=== PATIENT | female | born 1975 | race African-American/Black ===

== ENCOUNTER 2019-09-15 10:48 | Inpatient (IN) | payer SELFPAY ==
[~2019-09-15] VITALS: Ht 170.2 cm; Wt 70.5 kg
--- OUTSIDE RECORDS SUMMARY | 2019-09-15 10:51 | XMS REPORT ---
Author Author [facility] Address Unknown Phone Unavailable Care Team Providers Care Director [facility] Name Role Phone Unavailable Unavailable Problems This patient has no known problems. Allergies, Adverse Reactions, Alerts This patient has no known allergies or adverse reactions. Medications This patient has no known medications. Encounters Start Date/Time End Date/Time Encounter Type Admission Type Attending Clinicians Care Facility Care Department Encounter ID 2018-09-02 00:00:00 2018-09-02 00:00:00 Outpatient [facility] [id number] 2018-08-01 16:17:51 2018-08-01 16:17:51 Outpatient [facility] [id number] Results Test Description Test Time Test Comments Text Results Atomic Results Result Comments HCG Qualitative Urine 2019-05-25 15:42:41 hCG Ur (test code=hCG Ur) Negative If the result is "Negative" in patients suspected to be , recommend retest with a sample obtained 48 to 72 hours later, or by ordering a quantitative assay. If the result is "Borderline" gino ting should be repeated in 48 to 72 hours. Lot # (test code=Lot #) [id number] Expiration Dt (test code=Expiration Dt) Neg Control (test code=Neg Control) Negative Pos Control (test code=Pos Control) Positive Internal QC (test code=Internal QC) Acceptable Urinalysis with Culture, if [id number] 15:09:04* Test Item Value Reference Range Comments UA Color (test code=UA Color) STRAW Yellow UA Appear (test code=UA Appear) CLEAR Clear UA pH (test code=UA pH) 8 UA Spec Grav (test code=UA Spec Grav) 1.013 1.001-1.035 UA Glucose (test code=UA Glucose) NEG Negative UA Bili (test code=UA Bili) NEG Negative UA Ketones (test code=UA Ketones) NEG Negative UA Blood (test code=UA Blood) NEG Negative UA Protein (test code=UA Protein) NEG Negative UA Urobilinogen (test code=UA Urobilinogen) 0.2 mg/dL UA Nitrite (test code=UA Nitrite) NEG Negative UA Leuk Est (test code=UA Leuk Est) NEG Negative UA Micro Ind? (test code=UA Micro Ind?) Not Indicated Not Indicated Result created by rule [email or web address]_IND Comprehensive Metabolic [id number] 13:51:46* Test Item Value Reference Range Comments Sodium Level (test code=Sodium Level) 137.0 mmol/L 135.0-145.0 Potassium Level (test code=Potassium Level) 3.4 mmol/L 3.5-5.1 Chloride Level (test code=Chloride Level) 101 mmol/L 98-105 CO2 (test code=CO2) 25 mmol/L 22-29 Anion Gap (test code=Anion Gap) 11 mmol/L 7-16 BUN (test code=BUN) 8.90 mg/dL 6.00-20.00 Creatinine Level (test code=Creatinine Level) 0.80 mg/dL 0.50-0.90 BUN/Creat Ratio (test code=BUN/Creat Ratio) 11 Glucose Level (test code=Glucose Level) 133 mg/dL 70-115 Calcium Level (test code=Calcium Level) 9.6 mg/dL 8.3-10.5 Alk Phos (test code=Alk Phos) 68 U/L 35-104 Bilirubin Total (test code=Bilirubin Total) 0.2 mg/dL 0.1-0.9 Albumin Level (test code=Albumin Level) 4.4 g/dL 3.5-5.2 Protein Total (test code=Protein Total) 7.4 g/dL 6.4-8.3 ALT (test code=ALT) 8 U/L 1-33 AST (test code=AST) 17 U/L 1-32 Globulin (test code=Globulin) 3.0 g/dL 2.9-3.1 A/G Ratio (test code=A/G Ratio) 1.5 ratio Comprehensive Metabolic [id number] 13:51:46* Test Item Value Reference Range Comments Sodium Level (test code=Sodium Level) 137.0 mmol/L 135.0-145.0 Potassium Level (test code=Potassium Level) 3.4 mmol/L 3.5-5.1 Chloride Level (test code=Chloride Level) 101 mmol/L 98-105 CO2 (test code=CO2) 25 mmol/L 22-29 Anion Gap (test code=Anion Gap) 11 mmol/L 7-16 BUN (test code=BUN) 8.90 mg/dL 6.00-20.00 Creatinine Level (test code=Creatinine Level) 0.80 mg/dL 0.50-0.90 BUN/Creat Ratio (test code=BUN/Creat Ratio) 11 Glucose Level (test code=Glucose Level) 133 mg/dL 70-115 Calcium Level (test code=Calcium Level) 9.6 mg/dL 8.3-10.5 Alk Phos (test code=Alk Phos) 68 U/L 35-104 Bilirubin Total (test code=Bilirubin Total) 0.2 mg/dL 0.1-0.9 Albumin Level (test code=Albumin Level) 4.4 g/dL 3.5-5.2 Protein Total (test code=Protein Total) 7.4 g/dL 6.4-8.3 ALT (test code=ALT) 8 U/L 1-33 AST (test code=AST) 17 U/L 1-32 Globulin (test code=Globulin) 3.0 g/dL 2.9-3.1 A/G Ratio (test code=A/G Ratio) 1.5 ratio eGFR AA (test code=eGFR AA) >60 mL/min/1.73 m2 eGFR (estimated Glomerular Filtration Rate) is an estimated value, calculated from the patient's serum creatinine using the MDRD equation. It is NOT the patient's actual GFR. The eGFR provides a more clinically useful measure of kidney disease than serum creatinine alone.This calculation takes sex and race into account, if the information is provided. If the race is not provided, and the patient is -[place], multiply by 1.212. If sex is not provided, and the patient is female, multiply by 0.742. Results for patients <18 years of age have not been validated by the MDRD study and should be interpreted with caution. eGFR Result Interpretation:eGFR > or=60 is in the Normal RangeeGFR < 60 may mean kidney diseaseeGFR < 15 may mean kidney failure Ranges recommended by the National Kidney Foundation, http://nkdep.nih.gov Comprehensive Metabolic [id number] 13:51:46* Test Item Value Reference Range Comments Sodium Level (test code=Sodium Level) 137.0 mmol/L 135.0-145.0 Potassium Level (test code=Potassium Level) 3.4 mmol/L 3.5-5.1 Chloride Level (test code=Chloride Level) 101 mmol/L 98-105 CO2 (test code=CO2) 25 mmol/L 22-29 Anion Gap (test code=Anion Gap) 11 mmol/L 7-16 BUN (test code=BUN) 8.90 mg/dL 6.00-20.00 Creatinine Level (test code=Creatinine Level) 0.80 mg/dL 0.50-0.90 BUN/Creat Ratio (test code=BUN/Creat Ratio) 11 Glucose Level (test code=Glucose Level) 133 mg/dL 70-115 Calcium Level (test code=Calcium Level) 9.6 mg/dL 8.3-10.5 Alk Phos (test code=Alk Phos) 68 U/L 35-104 Bilirubin Total (test code=Bilirubin Total) 0.2 mg/dL 0.1-0.9 Albumin Level (test code=Albumin Level) 4.4 g/dL 3.5-5.2 Protein Total (test code=Protein Total) 7.4 g/dL 6.4-8.3 ALT (test code=ALT) 8 U/L 1-33 AST (test code=AST) 17 U/L 1-32 Globulin (test code=Globulin) 3.0 g/dL 2.9-3.1 A/G Ratio (test code=A/G Ratio) 1.5 ratio eGFR AA (test code=eGFR AA) >60 mL/min/1.73 m2 eGFR (estimated Glomerular Filtration Rate) is an estimated value, calculated from the patient's serum creatinine using the MDRD equation. It is NOT the patient's actual GFR. The eGFR provides a more clinically useful measure of kidney disease than serum creatinine alone.This calculation takes sex and race into account, if the information is provided. If the race is not provided, and the patient is -[place], multiply by 1.212. If sex is not provided, and the patient is female, multiply by 0.742. Results for patients <18 years of age have not been validated by the MDRD study and should be interpreted with caution. eGFR Result Interpretation:eGFR > or=60 is in the Normal RangeeGFR < 60 may mean kidney diseaseeGFR < 15 may mean kidney failure Ranges recommended by the National Kidney Foundation, http://nkdep.nih.gov eGFR Non-AA (test code=eGFR Non-AA) >60.00 mL/min/1.73 m2 eGFR (estimated Glomerular Filtration Rate) is an estimated value, calculated from the patient's serum creatinine using the MDRD equation. It is NOT the patient's actual GFR. The eGFR provides a more clinically useful measure of kidney disease than serum creatinine alone.This calculation takes sex and race into account, if the information is provided. If the race is not provided, and the patient is -[place], multiply by 1.212. If sex is not provided, and the patient is female, multiply by 0.742. Results for patients <18 years of age have not been validated by the MDRD study and should be interpreted with caution. eGFR Result Interpretation:eGFR > or=60 is in the Normal RangeeGFR < 60 may mean kidney diseaseeGFR < 15 may mean kidney failure Ranges recommended by the National Kidney Foundation, http://nkdep.nih.gov IG [id number] 12:57:01* Test Item Value Reference Range Comments IG (test code=IG) 0.2 % 0.0-5.0 IG Abs (test code=IG Abs) 0 x10 Complete Blood Count with [id number] 12:57:00* Test Item Value Reference Range Comments WBC (test code=WBC) 6.2 x10 4.4-10.5 RBC (test code=RBC) 5.23 x10 3.75-5.20 Hgb (test code=Hgb) 13.9 g/dL 12.2-14.8 Hct (test code=Hct) 42.9 % 36.5-44.4 MCV (test code=MCV) 82.00 fL 80.00-100.00 MCHC (test code=MCHC) 32.40 g/dL 32.00-37.50 RDW CV (test code=RDW CV) 14.6 % 11.5-14.5 MCH (test code=MCH) 26.6 pg 27.0-32.5 Platelets (test code=Platelets) 298.0 x10 140.0-440.0 MPV (test code=MPV) 10.9 fL Slide Review (test code=Slide Review) Auto Auto Result created by [email or web address] nRBC (test code=nRBC) 0 NRBC Abs (test code=NRBC Abs) 0.00 x10 IPF (test code=IPF) 0 % Automated [id number] 12:57:00* Test Item Value Reference Range Comments Neutro Auto (test code=Neutro Auto) 56.1 % 36.0-70.0 Lymph Auto (test code=Lymph Auto) 29.6 % 12.0-44.0 Willacy Auto (test code=Willacy Auto) 11.1 % 0.0-11.0 Eos, Auto (test code=Eos, Auto) 2.7 % 0.0-7.0 Basophil Auto (test code=Basophil Auto) 0.3 % 0.0-2.0 Neutro Absolute (test code=Neutro Absolute) 3.5 x10 1.6-7.4 Lymph Absolute (test code=Lymph Absolute) 1.85 x10 .50-4.60 Willacy Absolute (test code=Willacy Absolute) .69 x10 .00-1.20 Eos Absolute (test code=Eos Absolute) 0.17 x10 0.00-0.74 Baso Absolute (test code=Baso Absolute) 0.02 x10 0.00-0.21 MRI KNEE JNT LT WO CONTRASTCLINICAL INDICATION: S83.92XA Sprain of unspecified site of left knee, initial encounterMODALITY: ACR Accredited BrightView Systemse II 1.5 La MRITECHNIQUE: Multiplanar multisequence MRI of the left knee was performed.IMPRESSION:1. Bucket-handle tear left medial meniscus.2. 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 Small joint effusion.FINDINGS:COMPARISON: noneMENISCI: Bucket-handle tear medial meniscus. Lateral meniscus intact.CRUCIATE LIGAMENTS: Anterior and posterior cruciate ligaments are intact.COLLATERAL LIGAMENTS: Medial and lateral collateral ligaments are intact.OSSEOUS STRUCTURES AND CARTILAGINOUS SURFACES: 5 mm focal area of grade 3/four chondromalacia along the posterior weightbearing portion of the lateral tibial plateau with underlying cystic change. Articular cartilage medial knee joint normal. No fractures. No marrow replacement process.PATELLOFEMORAL JOINT: Alignment normal. Small joint effusion. Trace Acosta s cyst.MISCELLANEOUS FINDINGS: Extensor mechanism intact.
[2019-09-15] MEDS ORDERED: SODIUM CHLORIDE 0.9% 1000ML 1,000 ML IV STA (10:54)
[2019-09-15] MEDS ORDERED: DIATRIZOATE MEGL/DIATRIZOA SOD 30 ML BTL PO ONE (11:31)
[2019-09-15] MEDS ORDERED: ACETAMINOPHEN 325 MG TAB PO ONE (11:55)
[2019-09-15 12:06] LABS: BASOPHILS % 0.2 % (0.0-1.0); EOSINOPHILS # (AUTO) 0.1 (0.0-0.4); HEMOGLOBIN 12.7 g/dL (12.0-16.0); LYMPHOCYTES # (AUTO) 0.4 (1.0-3.2); LYMPHOCYTES % 2.6 % (18.0-39.1); MEAN CORPUSCULAR HGB CONC 32.6 g/dL (31-35); MONOCYTES # (AUTO) 0.5 (0.2-0.8); MONOCYTES % 3.5 % (4.4-11.3); NEUTROPHILS # (AUTO) 12.6 (2.1-6.9); NEUTROPHILS % 92.2 % (38.7-80.0); PLATELET COUNT 290 x10e3/uL (140-360)
[2019-09-15 12:29] LABS: ALANINE AMINOTRANSFERASE 17 IU/L (0-55); ALBUMIN 3.1 g/dL (3.5-5.0); ALBUMIN/GLOBULIN RATIO 0.8 (0.8-2.0); ALKALINE PHOSPHATASE 90 IU/L (40-150); ANION GAP 12.4 mmol/L (8-16); BLOOD UREA NITROGEN 7 mg/dL (7-26); BUN/CREATININE RATIO 9 (6-25); CALCIUM 8.9 mg/dL (8.4-10.2); CARBON DIOXIDE 26 mmol/L (22-29); CHLORIDE 103 mmol/L (98-107); CREATININE, SERUM 0.79 mg/dL (0.57-1.11); EST GLOMERULAR FILTRATION RATE > 60 ML/MIN (60-); GLUCOSE 114 mg/dL (74-118); POTASSIUM 3.4 mmol/L (3.5-5.1); SODIUM 138 mmol/L (136-145)
[2019-09-15 12:33] LABS: CLARITY,URINE CLEAR (CLEAR); COLOR,URINE YELLOW (YELLOW); LEUKOCYTE ESTERASE ,URINE TRACE (NEGATIVE)
[2019-09-15 12:34] LABS: BILIRUBIN,URINE NEGATIVE (NEGATIVE); KETONES,URINE 2+ (NEGATIVE); NITRITE,URINE NEGATIVE (NEGATIVE); PROTEIN,URINE DIPSTICK NEGATIVE (NEGATIVE); URINE UROBILINOGEN 1 mg/dL (0.2 - 1)
[2019-09-15 12:35] LABS: BACTERIA,URINE RARE /HPF; EPITHELIAL CELLS,URINE FEW /LPF; MUCUS,URINE FEW (RARE); PREGNANCY TEST, URINE NEGATIVE (NEGATIVE)
[2019-09-15 13:13] LABS: BAND NEUTROPHILS % (MANUAL) 4 %; LYMPHOCYTES % (MANUAL) 4 % (19-48); MONOCYTES % (MANUAL) 6 % (3.4-9.0); NEUTROPHILS % (MANUAL) 86 % (40-74)
[2019-09-15 13:16] LABS: RBC MORPHOLOGY COMMENT NORMAL
[2019-09-15 13:17] LABS: PLATELET ESTIMATE ADEQUATE; PLATELET MORPHOLOGY COMMENT NORMAL
[2019-09-15] MEDS ORDERED: PIPER-TAZ 3.375 GM 50 ML IV ONE (13:45)
[2019-09-15] MEDS ORDERED: SODIUM CHLORIDE 0.9% 1000ML 1,000 ML IV ONE (13:45)
[2019-09-15] MEDS ORDERED: IOPAMIDOL 370 MG/ML 200 ML INFUS..BTL INJ ONE (14:54)
--- NOTE | 2019-09-15 14:57 | Diagnostic Imaging Report ---
CT of the abdomen and pelvis, with contrast. History: Abdominal pain. Comparison: None available. Technique: Multidetector CT scanning of the abdomen and pelvis was performed from the level of the lung bases to the inferior pubic rami after intravenous administration of contrast. Coronal and sagittal multiplanar reformations were obtained. RADIATION DOSE: Total DLP: 223.69 mGy*cm Dose modulation, iterative reconstruction, and/or weight based adjustment of the mA/kV was utilized to reduce the radiation dose to as low as reasonably achievable. FINDINGS: Lung bases are unremarkable. Imaged portion of the heart demonstrates no significant abnormalities. The liver is normal in size and attenuation. There is a 1.3 cm hypodensity identified within the left hepatic lobe likely representing a cyst. Additional scattered subcentimeter hepatic hypodensities are identified which are too small to definitively characterize. No suspicious hepatic lesion is identified. The stomach, spleen, pancreas, and bilateral adrenal glands are unremarkable. The kidneys are normal in size and location and enhance symmetrically. There is no evidence for hydronephrosis. No ureteral dilatation or stone is appreciated. The urinary bladder demonstrates no significant abnormalities. The uterus is grossly unremarkable. There is fluid-filled, dilated tubular structure identified within the left adnexa with abnormal wall thickening and enhancement. The right adnexa is unremarkable. There is a small volume of free pelvic fluid present. The abdominal ureters normal course and caliber. The IVC is unremarkable. Please note evaluation the bowel is limited without the use of enteric contrast material. The visualized loops of small and large bowel demonstrate no evidence of obstruction or inflammation. There is no intraperitoneal free air. No abnormally enlarged lymph node identified within the abdomen or pelvis. The osseous structures demonstrate no evidence for acute fracture or destructive process. The extraperitoneal soft tissues are unremarkable. IMPRESSION: Dilated, fluid-filled tubular structure identified within the left adnexa which may represent hydrosalpinx or pyosalpinx in the appropriate clinical setting. Small volume of free pelvic fluid noted, likely reactive. Signed by: Dr. Heriberto Watson MD on 09/15/2019 2:54 PM
[2019-09-15] MEDS: CLINDAMYCIN PHOS 900MG/ 50ML 50 ML IV SCH (16:23)
[2019-09-15] MEDS ORDERED: MORPHINE SULFATE 2 MG/ML SYR 1ML IV PRN (16:30)
[2019-09-15] MEDS ORDERED: MORPHINE SULFATE INJ 4 MG/ML INJ 1ML IV PRN (16:45)
[2019-09-15] MEDS ORDERED: POTASSIUM CHLORIDE 20MEQ/100ML 100 ML IV ONE (18:00)
--- NOTE | 2019-09-15 18:13 | Diagnostic Imaging Report ---
Transvaginal and transabdominal ultrasound Indication: Abdominal pain ^? TOA ^[id number] ^[id number] Technique: Transabdominal ultrasound performed for global evaluation of the uterus. Transvaginal ultrasound performed for detailed evaluation of the endometrium and ovaries. Selected images provided for review. Comparison: CT abdomen/pelvis 1339 hours Findings: LMP: 08/08/2019 Transabdominally the uterus measures approximately 3.0 x 5.5 x 6.9 cm. The bladder is normal . Transvaginally, the uterus is retroflexed in position. Myometrial echotexture is normal. No exophytic mass. No definite fibroid. The endometrial stripe measures 0.3 cm, is linear and echogenic and is normal. The cervix is normal. Moderate amount of pelvic free fluid containing low level internal echoes. Neither ovary is visualized due to bowel gas. Adnexa: A thick-walled tubular structure in the left adnexa may represent a fallopian tube. There is also a soft tissue mass in the left adnexa with several internal cystic spaces measuring up to 12 mm. This measures approximately 2.9 x 5.6 cm. IMPRESSION: 1. Thick walled tubular structure in the left adnexa may represent a dilated fallopian tube. A soft tissue mass in the left adnexa containing multiple cystic spaces may or may not correspond to the ovary. Pelvic inflammatory disease cannot be excluded in the appropriate clinical setting. 2. Moderate pelvic ascites containing internal debris. 3. Retroflexed uterus. Normal endometrial stripe. 4. Nonvisualization of the right ovary. Signed by: Dr. Patricia Cheng MD on 09/15/2019 6:10 PM
[2019-09-15] MEDS: GENTAMICIN 120MG/NS 100ML 100 ML IV SCH (18:30)
[2019-09-15] MEDS: SODIUM CHLORIDE 0.9% 1000ML 1,000 ML IV SCH ×2 (18:56→22:55)
[2019-09-15] MEDS: ONDANSETRON HCL INJ 2MG/ML 2ML 2 MG/ML VIAL IV PRN (19:01)
[2019-09-15] MEDS: FAMOTIDINE 20 MG/2 ML VIAL IV SCH (19:07)
[2019-09-15 20:00] VITALS: BP 124/74
[2019-09-15 23:36] VITALS: BP 124/74
[2019-09-16] VITALS (9 sets, daily range): BP systolic 104–148; BP diastolic 52–83
[2019-09-16] MEDS: ACETAMINOPHEN 325 MG TAB PO PRN ×3 (01:14→23:00)
[2019-09-16] MEDS: CLINDAMYCIN PHOS 900MG/ 50ML 50 ML IV SCH ×3 (01:14→19:28)
[2019-09-16] MEDS: GENTAMICIN 120MG/NS 100ML 100 ML IV SCH ×3 (01:14→18:07)
--- NOTE | 2019-09-16 03:24 | Consultation ---
DATE OF CONSULTATION: 09/15/2019 Gynecology Consultation REASON FOR CONSULTATION: Pelvic mass and fever. CHIEF COMPLAINT: Abdominal pain. HISTORY OF PRESENT ILLNESS: Lolita Ac is a 44-year-old 2, para 0-0-2-0 with last menstrual period on August 08, 2019, who presented to the emergency department with history of abdominal pain since last September 06. The patient reports that she believes she had a bladder infection as it started as a suprapubic pain with accompanying urgency. She was seen by her primary care provider, who gave her amoxicillin. No urine culture was done per patient. She reports that 2 to 3 days ago, she began to have increase in the pain, the pain began to radiate into her left lower quadrant and to the umbilicus. Today, she presented to the emergency department via ambulance as her pain had become severe 10/10 diffusely in her pelvic region left worse than right. She describes the pain as being sharp in nature. She denies any nausea, vomiting, diarrhea, or constipation. She does report that yesterday she noticed some spotting, but believed that this was the beginning of her period, which is due any time now. She also noted that she had vaginal discharge starting yesterday, which was green. Of note, she does report a history of dysmenorrhea, never that severe. She also notes a history of pelvic inflammatory disease, which occurred 6 years ago, which was treated with antibiotics inpatient. GYNECOLOGIC HISTORY: Otherwise negative. OBSTETRICAL HISTORY: Two pregnancies, both were spontaneous abortions. No D and C required for either. PAST MEDICAL HISTORY: The patient denies. PAST SURGICAL HISTORY: Left knee meniscus repair. MEDICATIONS: None. ALLERGIES: NONE. FAMILY HISTORY: No pertinent family history. SOCIAL HISTORY: The patient reports one current sexual partner. She is not currently using any form of contraception and does not use condom. She uses alcohol occasionally and no tobacco or drug use. REVIEW OF SYSTEMS: A 10-point review of systems is negative except as listed in the HPI. PHYSICAL EXAMINATION: VITAL SIGNS: Patient presented to the emergency room with a temperature of 101.8 degrees Fahrenheit and a pulse of 119. Remainder of vital signs stable. CONSTITUTIONAL APPEARANCE: The patient is in no acute distress. She is alert and oriented. HEAD AND FACE: Normocephalic, atraumatic. CHEST: Respiratory effort, breathing nonlabored. CARDIOVASCULAR: Regular rhythm and rate. BREASTS: Deferred. GASTROINTESTINAL: Abdominal examination reveals a diffusely tender abdomen, somewhat more tender to palpation in the left lower quadrant. Normal bowel sounds. Normal tone without rigidity or guarding. No palpable mass is present. No hernias noted. GENITOURINARY: External genitalia was normal in appearance for age with no obvious discharge present. No inflammatory lesions present. Sterile speculum exam of the vagina revealed normal vaginal vault with moderate amount of white discharge present. No inflammatory lesions. No masses. On bimanual exam, bladder was nontender to palpation. Her cervix had no cervical motion tenderness. The appearance was healthy. No bleeding present. No obvious discharge. Uterus diffusely tender to palpation. No masses present. Contour smooth to palpation, position was mid-plane, size normal, mobility normal. Adnexa with diffuse bilateral adnexal tenderness present. No adnexal masses were palpable possibly secondary to voluntary guarding of the patient's perineum, perineum was within normal limits. No evidence of trauma, rashes, or skin lesions. Inguinal lymph nodes. No lymphadenopathy present. SKIN: General inspection, no rashes or lesions present. NEUROLOGIC: Grossly oriented to person, place, and time. Mood and affect normal and appropriate. PERTINENT LAB FINDINGS: Included a white blood cell count of 13.69, and a pelvic ultrasound, which noted a dilated tubular structure in the left adnexa measuring 2.9 x 5.6 cm. There is also a soft tissue mass in the left adnexa containing multiple cystic spaces, which may or may not correspond to the ovary. Please see full report for further information. ASSESSMENT: This is a 44-year-old 2, para 0-0-2-0 with possible tubo-ovarian abscess and likely pelvic inflammatory disease. PLAN: Admit to inpatient. Continue IV antibiotic started by emergency room physician, IV clindamycin, and gentamicin. We will make the patient n.p.o. after midnight and consult Interventional Radiology for possible drainage of pelvic abscess. Mari Driscoll MD MEF/MODL /[id number]
[2019-09-16 06:17] LABS: BASOPHILS % 0.2 % (0.0-1.0); EOSINOPHILS % 0.1 % (0.0-6.0); HEMATOCRIT 31.9 % (34.2-44.1); HEMOGLOBIN 10.3 g/dL (12.0-16.0); LYMPHOCYTES # (AUTO) 0.7 (1.0-3.2); MEAN CORPUSCULAR HEMOGLOBIN 26.8 pg (28-32); MEAN CORPUSCULAR HGB CONC 32.3 g/dL (31-35); MEAN CORPUSCULAR VOLUME 82.9 fL (81-99); MONOCYTES # (AUTO) 0.7 (0.2-0.8); MONOCYTES % 4.2 % (4.4-11.3); NEUTROPHILS # (AUTO) 15.7 (2.1-6.9); NEUTROPHILS % 90.7 % (38.7-80.0); PLATELET COUNT 244 x10e3/uL (140-360); RED BLOOD COUNT 3.85 x10e6/uL (3.6-5.1); RED CELL DISTRIBUTION WIDTH 14.4 % (11.7-14.4)
[2019-09-16 06:27] LABS: INR 1.4; PROTHROMBIN TIME 18.1 seconds (11.9-14.5)
[2019-09-16 06:28] LABS: PARTIAL THROMBOPLASTIN TIME 45.1 seconds (23.8-35.5)
[2019-09-16 06:37] LABS: ALANINE AMINOTRANSFERASE 10 IU/L (0-55); ALBUMIN 2.3 g/dL (3.5-5.0); ALBUMIN/GLOBULIN RATIO 0.7 (0.8-2.0); ALKALINE PHOSPHATASE 77 IU/L (40-150); ANION GAP 6.7 mmol/L (8-16); BLOOD UREA NITROGEN 6 mg/dL (7-26); BUN/CREATININE RATIO 8 (6-25); CALCIUM 8.3 mg/dL (8.4-10.2); CARBON DIOXIDE 25 mmol/L (22-29); CHLORIDE 109 mmol/L (98-107); CREATININE, SERUM 0.75 mg/dL (0.57-1.11); EST GLOMERULAR FILTRATION RATE > 60 ML/MIN (60-); GLUCOSE 87 mg/dL (74-118); POTASSIUM 3.7 mmol/L (3.5-5.1); SODIUM 137 mmol/L (136-145)
--- NOTE | 2019-09-16 09:05 | NUR ---
PATIENT IS AWAKE, ALERT, AND IN STABLE CONDITION WITH NO S/S RESPIRATORY DISTRESS. NO PAIN VOICED. IV FLUIDS INFUSING. PATIENT IS NPO FOR PROCEDURE TODAY. PATIENT WILL PROVIDE MED LIST WHEN AVAILABLE TO STAFF MEMBERS. CALL LIGHT IS WITHIN REACH, PATIENT INSTRUCTED TO CALL FOR ASSISTANCE NEEDED.
[2019-09-16] MEDS: FAMOTIDINE 20 MG/2 ML VIAL IV SCH ×2 (09:07→21:00)
--- NOTE | 2019-09-16 09:45 | NUR ---
DR. VASQUES INFORMED OF PATIENT'S SIRS ALERT SCREEN-NO NEW ORDERS GIVEN. PATIENT ON IV FLUIDS AND IS IN STABLE CONDITION WITH NO S/S RESPIRATORY DISTRESS; NO PAIN VOICED. CALL LIGHT IS WITHIN REACH, PATIENT INSTRUCTED TO CALL FOR ASSISTANCE NEEDED.
[2019-09-16] MEDS ORDERED: MAGNESIUM SULFATE 2GM/50ML 50 ML IV ONE (13:00)
[2019-09-16] MEDS: LACTATED RINGER'S 1,000 ML IV SCH (13:13)
--- NOTE | 2019-09-16 14:05 | NUR ---
IV MAGNESIUM WAS ADMINISTERED TO PATIENT BUT THEN PATIENT ASKED FOR IT TO BE TURNED OFF BECAUSE SHE STATED "I DO NOT LIKE THE WAY IT IS MAKING ME FEEL". DR. VASQUES INFORMED PATIENT IS REFUSING IV MAGNESIUM- ORDER TO DC IT.
--- NOTE | 2019-09-16 15:50 | NUR ---
PATIENT IS REFUSING TO BE CONNECTED TO IV FLUIDS OR HER IV ANTIBIOTICS AT THIS TIME. SHE WANTS TO WAIT TO BE CONNECTED TO THE IV ANTIBIOTIC AFTER SHE EATS.
--- NOTE | 2019-09-16 19:37 | NUR ---
PATIENT IN STABLE CONDITION WITH NO S/S RESPIRATORY DISTRESS. NO PAIN VOICED. IV ANTIBIOTIC INFUSING. CALL LIGHT IS WITHIN REACH, PATIENT INSTRUCTED TO CALL FOR ASSISTANCE NEEDED. BEDSIDE SHIFT REPORT GIVEN TO ONCOMING NURSE.
--- NOTE | 2019-09-16 19:58 | NUR ---
RECEIVED PT IN BED AOX3 DENIES PAIN AT THIS TIME LEFT AC 22G LR IS RUNNING AT 100CC/HR .CALL LIGHT WITH IN REACH .CONTINUE TO MONITOR
[2019-09-16] MEDS: ONDANSETRON HCL INJ 2MG/ML 2ML 2 MG/ML VIAL IV PRN (23:00)
[2019-09-17] VITALS (9 sets, daily range): BP systolic 103–140; BP diastolic 58–79
[2019-09-17] MEDS: GENTAMICIN 120MG/NS 100ML 100 ML IV SCH ×3 (01:00→17:56)
[2019-09-17 05:55] LABS: BASOPHILS # (AUTO) 0.1 (0.0-0.1); BASOPHILS % 0.2 % (0.0-1.0); EOSINOPHILS % 0.1 % (0.0-6.0); HEMATOCRIT 30.9 % (34.2-44.1); HEMOGLOBIN 10.1 g/dL (12.0-16.0); LYMPHOCYTES # (AUTO) 0.6 (1.0-3.2); LYMPHOCYTES % 2.5 % (18.0-39.1); MEAN CORPUSCULAR HEMOGLOBIN 26.7 pg (28-32); MEAN CORPUSCULAR HGB CONC 32.7 g/dL (31-35); MEAN CORPUSCULAR VOLUME 81.7 fL (81-99); MONOCYTES # (AUTO) 1.2 (0.2-0.8); MONOCYTES % 4.7 % (4.4-11.3); NEUTROPHILS # (AUTO) 22.6 (2.1-6.9); NEUTROPHILS % 90.9 % (38.7-80.0); PLATELET COUNT 280 x10e3/uL (140-360); RED BLOOD COUNT 3.78 x10e6/uL (3.6-5.1); RED CELL DISTRIBUTION WIDTH 14.6 % (11.7-14.4)
[2019-09-17] MEDS: LACTATED RINGER'S 1,000 ML IV SCH ×3 (06:07→20:55)
--- NOTE | 2019-09-17 06:30 | NUR ---
TEM 100.3 AND GIVEN TYLENOL 650 MG AND TEM REDUCED 98.7 .CALL LIGHT WITH IN REACH .CONTINUE TO MONITOR
--- NOTE | 2019-09-17 07:15 | NUR ---
PATIENT IN STABLE CONDITION WITH NO S/S RESPIRATORY DISTRESS. PATIENT C/O SLIGHT DISCOMFORT TO LOWER ABD. IV FLUIDS INFUSING. BOYFRIEND PRESENT IN ROOM. CALL LIGHT IS WITHIN REACH, PATIENT INSTRUCTED TO CALL FOR ASSISTANCE NEEDED.
--- NOTE | 2019-09-17 07:17 | NUR ---
BEDSIDE REPORT GIVEN TO THE ONCOMING NURSE
[2019-09-17] MEDS: FAMOTIDINE 20 MG/2 ML VIAL IV SCH (07:51)
[2019-09-17] MEDS: CLINDAMYCIN PHOS 900MG/ 50ML 50 ML IV SCH ×3 (07:51→15:12)
[2019-09-17 08:19] LABS: LYMPHOCYTES % (MANUAL) 1 % (19-48); MONOCYTES % (MANUAL) 4 % (3.4-9.0); NEUTROPHILS % (MANUAL) 95 % (40-74)
[2019-09-17 08:20] LABS: PLATELET ESTIMATE ADEQUATE; PLATELET MORPHOLOGY COMMENT NORMAL; RBC MORPHOLOGY COMMENT NORMAL
--- NOTE | 2019-09-17 09:16 | NUR ---
DR. VASQUES INFORMED OF SIRS ALERT- PATIENT HAD A FEVER YESTERDAY EVENING. NO NEW ORDERS RECEIVED.
--- NOTE | 2019-09-17 10:55 | Diagnostic Imaging Report ---
PROCEDURE: Fluid collection aspiration Procedural Personnel Attending physician(s): Nuha Rivera MD Fellow physician(s): None Resident physician(s): None Advanced practice provider(s): None Pre-procedure diagnosis: Tuboovarian abscess Post-procedure diagnosis: Same Indication: Fever, leukocytosis, pain associated with fluid collection Additional clinical history: None Complications: No immediate complications. IMPRESSION: Percutaneous aspiration of left pyosalpinx/tuboovarian abscess, yielding 50 mL of purulent fluid. No drainage catheter was left in place. Plan: Fluid sent for gram stain and fluid culture/sensitivity. PROCEDURE SUMMARY: - Aspiration of left tuboovarian abscess under CT guidance - Additional procedure(s): None PROCEDURE DETAILS: Pre-procedure Consent: Informed consent for the procedure including risks, benefits and alternatives was obtained and time-out was performed prior to the procedure. Preparation: The site was prepared and draped using maximal sterile barrier technique including cutaneous antisepsis. Anesthesia/sedation Level of anesthesia/sedation: No sedation Fluid collection aspiration The patient was positioned supine. Initial imaging was performed. Local anesthesia was administered. The fluid collection was accessed using an access needle. Position within the fluid collection was confirmed, and fluid aspiration was performed. All instruments were then removed. - Initial imaging findings: Left pyosalpinx/tuboovarian abscess - Aspiration needle/catheter: 18 gauge Chiba - Post-aspiration imaging findings: No complications Contrast Contrast agent: Isovue 370 Contrast volume (mL): [address] dose length product (mGy-cm): 1377 Additional Details Additional description of procedure: None Equipment details: None Specimens removed: Aspirated fluid was sent for analysis. Estimated blood loss (mL): Less than 10 Standardized report: [email or web address] Attestation Signer name: Nuha Rivera MD I attest that I was present for the entire procedure. I reviewed the stored images and agree with the report as written. Signed by: Nuha Rivera MD on 09/17/2019 10:52 AM
--- NOTE | 2019-09-17 11:58 | NUR ---
GAVE PACKET OF INFORMATION WITH COMM[employer]ITY [employer] FOR ASSISTANCE WITH LOW TO NO INCOME TO PATIENT. RESOURCES THAT PATIENT MAY BE ABLE TO FOLLOW UP UPON DISCHARGE. PT EDUCATED ON EACH RESOURCE AND UNDERSTANDING HOW TO FOLLOW UP TO SEE IF QUALIFIED FOR EACH RESOURCE. REFUSED TO COMPLETE DPA.
[2019-09-17] MEDS ORDERED: ACETAMINOPHEN/CODEINE 300MG - 30MG TAB PO PRN (12:15)
[2019-09-17] MEDS: ONDANSETRON HCL INJ 2MG/ML 2ML 2 MG/ML VIAL IV PRN (13:26)
[2019-09-17] MEDS ORDERED: DIATRIZOATE MEGL/DIATRIZOA SOD 30 ML BTL PO ONE (14:07)
--- NOTE | 2019-09-17 17:28 | Diagnostic Imaging Report ---
CT Abdomen And Pelvis with Intravenous Contrast INDICATION: ^PID/TOA, NEEDS PO CONTRAST TECHNIQUE: Thin collimation axial images obtained from the diaphragm to the level of the pubic symphysis following the uneventful administration of 100 cc of low osmolar, nonionic intravenous contrast. Dose reduction techniques used: Automated exposure control, adjustment of the mAs and/or kVp according to patient size, standardized low-dose protocol, and/or iterative reconstruction technique. RADIATION DOSE: Total DLP: 207.29 mGy*cm Estimated effective dose: (DLP x 0.015 x size factor) mSv CTDIvol has been reviewed. It is below the limits set by the Radiation Protocol Committee (RPC). COMPARISON: Pelvic ultrasound 09/17/2019. CT abdomen/pelvis 09/15/2019; CT images from percutaneous aspiration 09/16/2019 ABDOMEN FINDINGS: Lung Bases: Small posterior layering pleural effusions and bibasilar atelectasis. Small pericardial effusion. Liver: Low attenuating lesions in each lobe are stable. Gallbladder: Present and appears normal. No biliary ductal dilatation. Pancreas: Normal attenuation without mass or ductal dilatation. Spleen: Normal in size. No evidence of mass. Adrenal Glands: No evidence for mass. Kidneys: Right: Normal enhancement. No soft tissue mass. No hydronephrosis. Left: Normal enhancement. No soft tissue mass. No hydronephrosis. Lymph Nodes: Multiple periaortic lymph nodes are redemonstrated, measuring up to 12 mm. Aorta: Normal in diameter PELVIS FINDINGS: Bowel: Stomach: Normal. Small Bowel: Contains enteric contrast. Several small bowel loops in the lower abdomen are mildly distended with air to a diameter of 17 mm. Large Bowel: There is enteric contrast in the cecum. The large bowel is collapsed. There are a few diverticula in the descending colon. The midline sigmoid colon is displaced to the right as the result of left adnexal inflammation. Appendix: There is a collapsed tubular structure in the right lower quadrant (series 2, image 60) that may represent the appendix. This was also present on previous CT. Bladder: Collapsed. The uterus is present and retroflexed in position. An enhancing tubular structure superior to the uterus extending to the left of midline is redemonstrated. This measures 2.2 cm in diameter. The left ovary is not visualized but is likely involved in the left pelvic/adnexal inflammation. Peritoneum: Numerous peripherally enhancing fluid collections in the posterior pelvis have developed measuring up to 2.3 x 2.9 cm located at the posterior midline and located along the right and left pelvic razo. A peripherally enhancing fluid collection in the anterior pelvis measures 3.3 x 5.8 cm (series 2, image 64). There is a small amount of free ascites in the upper abdomen and along the paracolic gutters. No free air. Bones: No focal osseous lesions. IMPRESSION: 1. Multiple pelvic abscesses have developed. An inflamed left fallopian tube is redemonstrated. Findings are consistent with tubo-ovarian abscess. 2. Mild small bowel ileus secondary to infection. No evidence of bowel obstruction. 3. Increasing abdominopelvic ascites. New small pleural effusions. Small pericardial effusion. Signed by: Dr. Patricia Cheng MD on 09/17/2019 5:25 PM
--- NOTE | 2019-09-17 17:34 | Diagnostic Imaging Report ---
Pelvic ultrasound Transvaginal History: PID/TOA Comparison: Pelvic ultrasound 09/15/2019. CT abscess drainage 09/16/2019 Technique: Images were obtained with the endovaginal probe. Findings: The uterus is retroflexed. It measures 7.1 cm in length. It is normal in size configuration and echogenicity. The endometrial stripe measures 0.8 and is normal in echotexture. No fluid in the endometrial canal. Myometrial echotexture is normal. The ovaries are not visualized. A 6 cm soft tissue mass in the right adnexa measures 4.0 x 6.8 cm in the sagittal plane. This may correspond to the midline posterior pelvic structures identified on previous exam. The thick walled tubular structure in the left adnexa on previous exam is not visualized. Moderate ascites with low level internal echoes. Loculated fluid collection adjacent to the fundus measures 3.3 x 2.0 cm. IMPRESSION: 1. Normal uterus and endometrial stripe 2. Nonvisualization of the ovaries. 3. 6 cm soft tissue mass in the right adnexa may in fact correspond to the tubular structure in the left adnexa identified on previous exam corresponding to pyosalpinx. 4. Loculated abscess adjacent to the fundus as described above. Signed by: Dr. Patricia Cheng MD on 09/17/2019 5:31 PM
[2019-09-17] MEDS ORDERED: SODIUM CHLORIDE 0.9% 50ML 50 ML ONE (17:35)
[2019-09-17] MEDS ORDERED: IOPAMIDOL 370 MG/ML 200 ML INFUS..BTL INJ ONE (17:35)
[2019-09-17] MEDS: LACTOBACILLUS ACIDOPHILUS CAPSULE PO SCH (17:56)
--- NOTE | 2019-09-17 18:54 | NUR ---
CALLED AND SPOKE WITH DR. PAGAN REGARDING THE ULTRASOUND AND CT RESULTS- NO NEW ORDER RECEIVED.
--- NOTE | 2019-09-17 19:26 | NUR ---
PATIENT IN STABLE CONDITION WITH NO S/S RESPIRATORY DISTRESS. NO PAIN VOICED. CALL LIGHT IS WITHIN REACH, PATIENT INSTRUCTED TO CALL FOR ASSISTANCE NEEDED. PATIENT AWARE SHE WILL BE NPO AFTER MIDNIGHT. BEDSIDE SHIFT REPORT GIVEN TO ONCOMING NURSE.
--- NOTE | 2019-09-17 19:49 | NUR ---
RECEIVED PT IN BED AOX3 .PT HAS NO FEVER .PT IS NPO AFTER MIDNIGHT DENIES PAIN CALL LIGHT WITH IN REACH .CONTINUE TO MONITOR
[2019-09-17] MEDS ORDERED: VANCOMYCIN 1GM/NS 250 ML 250 ML IV ONE (20:00)
--- NOTE | 2019-09-17 21:45 | NUR ---
CALLED DR MOSES AND TOLD DR VASQUES TOLD TO CANCEL THE CONSULT .PAGED DR GANT AND WAITING FOR THE CALL BACK
--- NOTE | 2019-09-17 22:30 | NUR ---
PT REFUSED TO PUT IV AND MEDICINE BEFORE 2330 .PT SAID PT IS HUNGARY AND SHE WANTS TO EAT ,DOES NOT WANT TO PUT MEDICINE BEFORE EATING WAITING TO PUT AND INFUSE ABT .PT HAS TAKEN TYLENOL AFTER EATING.CONTINUE TO MONITOR
[2019-09-18] MEDS: CLINDAMYCIN PHOS 900MG/ 50ML 50 ML IV SCH ×2 (00:43→07:52)
[2019-09-18] MEDS: GENTAMICIN 120MG/NS 100ML 100 ML IV SCH ×2 (01:29→08:40)
[2019-09-18 04:00] VITALS: BP 108/69
--- NOTE | 2019-09-18 06:18 | NUR ---
PT HAS NEW IV AT LEFT HAND ,TEM IS 98.6 PT HAS TAKEN IV ABT .KEEPING PT NPO FAMILY AT THE BEDSIDE ,CALL LIGHT WITH IN REACH .CONTINUE TO MONITOR
[2019-09-18 06:38] LABS: BASOPHILS # (AUTO) 0.1 (0.0-0.1); BASOPHILS % 0.3 % (0.0-1.0); EOSINOPHILS # (AUTO) 0.1 (0.0-0.4); EOSINOPHILS % 0.3 % (0.0-6.0); HEMOGLOBIN 10.1 g/dL (12.0-16.0); LYMPHOCYTES % 4.5 % (18.0-39.1); MEAN CORPUSCULAR HEMOGLOBIN 27.2 pg (28-32); MEAN CORPUSCULAR HGB CONC 33.7 g/dL (31-35); MEAN CORPUSCULAR VOLUME 80.6 fL (81-99); MONOCYTES % 4.2 % (4.4-11.3); NEUTROPHILS # (AUTO) 20.1 (2.1-6.9); NEUTROPHILS % 88.6 % (38.7-80.0); PLATELET COUNT 301 x10e3/uL (140-360); RED BLOOD COUNT 3.72 x10e6/uL (3.6-5.1); RED CELL DISTRIBUTION WIDTH 14.8 % (11.7-14.4)
[2019-09-18 06:50] LABS: INR 1.33; PROTHROMBIN TIME 17.4 seconds (11.9-14.5)
[2019-09-18 06:51] LABS: PARTIAL THROMBOPLASTIN TIME 48.4 seconds (23.8-35.5)
[2019-09-18 06:57] LABS: ANION GAP 8.3 mmol/L (8-16); BLOOD UREA NITROGEN 7 mg/dL (7-26); BUN/CREATININE RATIO 8 (6-25); CALCIUM 8.3 mg/dL (8.4-10.2); CARBON DIOXIDE 29 mmol/L (22-29); CHLORIDE 104 mmol/L (98-107); CREATININE, SERUM 0.88 mg/dL (0.57-1.11); EST GLOMERULAR FILTRATION RATE > 60 ML/MIN (60-); GLUCOSE 104 mg/dL (74-118); POTASSIUM 3.3 mmol/L (3.5-5.1); SODIUM 138 mmol/L (136-145)
--- NOTE | 2019-09-18 07:10 | NUR ---
PATIENT IN STABLE CONDITION WITH NO S/S RESPIRATORY DISTRESS. PATIENT DENIES PAIN. IV FLUIDS INFUSING. BED ALARM APPLIED. CALL LIGHT IS WITHIN REACH, PATIENT INSTRUCTED TO CALL FOR ASSISTANCE NEEDED.
--- NOTE | 2019-09-18 07:13 | NUR ---
PAGED DR ARMENDARIZ X 2 FOR CONSULT FOR EMMY JONES BEDSIDE REPORT GIVEN TO THE ONCOMING NURSE
[2019-09-18 07:59] VITALS: BP 119/68
[2019-09-18 08:03] VITALS: BP 119/68
[2019-09-18] MEDS: LACTOBACILLUS ACIDOPHILUS CAPSULE PO SCH ×2 (08:41→16:49)
[2019-09-18] MEDS: LACTATED RINGER'S 1,000 ML IV SCH (09:49)
[2019-09-18 11:36] VITALS: BP 118/76
[2019-09-18] MEDS ORDERED: DOXYCYCLINE 100MG/NS 100ML 100 ML IV SCH ×3 (11:45→18:00)
[2019-09-18] MEDS ORDERED: PIPER-TAZ 3.375 GM 50 ML IV SCH ×4 (12:00→14:00)
[2019-09-18] MEDS ORDERED: POTASSIUM CHLORIDE 20MEQ/100ML 200 ML IV ONE (12:30)
--- NOTE | 2019-09-18 12:39 | NUR ---
CM ATTEMPTED TO SPEAK W THE PT FOR THE FINANCIAL COUNSELOR; WINSTON. PT HAS REFUSED TO COMPLETE THE CELIA APPLICATION, PT ASKED TO BE LEFT ALONE. SHE DID NOT WANT TO COMPLETE AN APPLICATION AT THIS TIME. MET W DR. VASQUES AFTER HE SAW THE PT. STATES THE PT IS CALM NOW. STATES SHE IS UPSET BECAUSE SHE WILL NEED TO HAVE SURGERY TODAY.
--- NOTE | 2019-09-18 13:42 | Consultation ---
DATE OF CONSULTATION: 09/18/2019 HISTORY OF PRESENT ILLNESS: The patient is a 44-year-old female, admitted with lower abdominal pain. Pain started about 10 days ago, persisted. She thought it was a bladder infection, came to the emergency room. Evaluation of abscess in the pelvis consistent with tubo-ovarian abscess. She has had aspiration of the abscess. She still has some pain. She denies nausea or vomiting. She has not had similar problems in the past. PAST MEDICAL HISTORY: Otherwise unremarkable. She has no chronic medical problems. PAST SURGICAL HISTORY: She has had previous surgery on her left knee. MEDICATIONS: She has no current medications. ALLERGIES: NO KNOWN ALLERGIES. FAMILY HISTORY: Noncontributory. SOCIAL HISTORY: The patient does not smoke cigarettes or drink alcohol. REVIEW OF SYSTEMS: As stated above. PHYSICAL EXAMINATION: GENERAL: The patient is awake and alert. VITAL SIGNS: Reveal low-grade fever. Temperature 100.5. HEENT: Sclerae is nonicteric. NECK: No masses. LUNGS: Equal breath sounds are clear bilaterally. CARDIAC: Regular rate and rhythm with no murmur. ABDOMEN: Mildly distended. There is tender in the lower abdomen. No definite signs of peritonitis. No mass. EXTREMITIES: Have no edema. NEUROLOGIC: Intact. LABORATORY DATA: White blood cell count is elevated at 22.6, this is down from 24.8 yesterday. Hemoglobin 10 and hematocrit 30, which are stable. Chemistries were essentially normal. CT of the abdomen and pelvis revealed abscess in the pelvis consistent with tubo-ovarian abscess bilaterally with inflammation of left fallopian tube. ASSESSMENT: A 44-year-old female with pelvic abscess secondary to tubo-ovarian abscess. I defer to Gynecology as far as management for her if they plan to take the patient to surgery and need assistance, I will be available. Thank you for asking me to see Ms. Ac. MD YI Vines/REIK /[id number]
--- NOTE | 2019-09-18 13:44 | NUR ---
PATIENT OFF THE UNIT PER STRETCHER TO THE OR- PATIENT IN STABLE CONDITION WITH NO S/S OF RESPIRATORY DISTRESS. IV FLUIDS AND POTASSIUM SENT WITH THE PATIENT.
[2019-09-18] MEDS ORDERED: BUPIVACAINE HCL 0.5% INJ 30 ML VIAL INJ ONE (14:17)
[2019-09-18] MEDS ORDERED: PROPOFOL IV EMULSION 10 MG/ML 20 ML VIAL ONE (14:32)
[2019-09-18] MEDS ORDERED: LIDOCAINE HCL 2% LOCAL INJ 5 ML SDV VIAL INJ ONE (14:32)
[2019-09-18] MEDS ORDERED: DEXAMETHASONE SOD PHOS INJ 4 MG/ML VIAL ONE (14:32)
[2019-09-18] MEDS ORDERED: SEVOFLURANE INHAL SOLN 250 ML PEN BTL ONE (14:32)
[2019-09-18] MEDS ORDERED: ONDANSETRON HCL INJ 2MG/ML 2ML 2 MG/ML VIAL ONE ×2 (14:32→18:16)
[2019-09-18] MEDS ORDERED: ROCURONIUM BROMIDE 10 MG/ML 5ML VIAL ONE (14:32)
[2019-09-18] MEDS ORDERED: ACETAMINOPHEN 1000 MG/100 ML IV ONE (14:32)
[2019-09-18 14:34] LABS: HIV 1&2 AB SCREEN NON-REACTIVE (NONREACTIVE)
[2019-09-18] MEDS ORDERED: ACETAMINOPHEN 1000 MG/100 ML 100 ML IV ONE (15:45)
[2019-09-18] MEDS: PIPER-TAZ 3.375 GM 50 ML IV SCH ×2 (16:00→22:03)
--- NOTE | 2019-09-18 18:36 | NUR ---
PATIENT BACK ON THE UNIT FROM PACU- PATIENT IN STABLE CONDITION WITH NO S/S RESPIRATORY DISTRESS. NO PAIN VOICED. THREE LAPAROSCOPIC SITES NOTED (ONE HAVING A QUEENIE DRAIN; QUEENIE INTACT AND DRESSING IS C/D/I). IV FLUIDS AND IV POTASSIUM RESTARTED AND ARE INFUSING. BED ALARM APPLIED. FAMILY MEMBERS PRESENT IN ROOM. CALL LIGHT IS WITHIN REACH, PATIENT INSTRUCTED TO CALL FOR ASSISTANCE NEEDED.
--- NOTE | 2019-09-18 19:04 | Consultation ---
DATE OF CONSULTATION: REASON FOR CONSULTATION: Pelvic abscess. HISTORY OF PRESENT ILLNESS: She is 44-year-old female with history of PID six years ago, was treated, comes with abdominal pain for a week. She was found to have ovarian abscess, pelvic abscess, underwent CT guided aspiration, showed E coli. BPM ANALYST was consulted. CAT scan showed multiple pelvic abscess. The patient has leukocytosis on admission. She is currently feeling better. PAST MEDICAL HISTORY: As above. PAST SURGICAL HISTORY: Above. ALLERGIES: PENICILLIN. SOCIAL HISTORY: There is no smoking, drug abuse, or alcohol abuse. 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 PHYSICAL EXAMINATION: GENERAL: She is currently alert, oriented, does not seem to be in acute distress. VITAL SIGNS: Stable, afebrile. HEENT: She is not icteric. NECK: Supple. CHEST: Clear. HEART: S1 and S2. ABDOMEN: Soft. Bowel sounds present. No tenderness. EXTREMITIES: No edema. IMPRESSION: Pelvic abscesses, PID. RECOMMENDATIONS: Zosyn, doxycycline. We will check for HIV, RPR, GC, chlamydia. Keep her IV antibiotic till WBC normalized and long-term oral antibiotic after the patient is going for surgical debridement today. Discussed with BPM ANALYST. Discussed with Internal Medicine. MD DANIELA Michele/ERIK /[id number]
--- NOTE | 2019-09-18 19:19 | NUR ---
PATIENT IN STABLE CONDITION WITH NO S/S RESPIRATORY DISTRESS. NO PAIN VOICED. IV FLUIDS INFUSING. BED ALARM APPLIED. DRESSING TO RIGHT SIDE OF ABD IS C/D/I AND QUEENIE DRAIN INTACT (NO DRAINAGE NOTED). CALL LIGHT IS WITHIN REACH, PATIENT INSTRUCTED TO CALL FOR ASSISTANCE NEEDED. BEDSIDE SHIFT REPORT GIVEN TO ONCOMING NURSE.
--- NOTE | 2019-09-18 19:20 | NUR ---
RECEIVED THE PATIENT IN REPORT.LYEING IN THE BED.IV FLUID RUNNING.STABLE CONDITION.
[2019-09-18] MEDS ORDERED: FENTANYL CITRATE/PF 100MCG/2 ML INJ ONE (19:33)
[2019-09-18] MEDS ORDERED: MIDAZOLAM HCL 2 MG/2 ML VIAL ONE (19:33)
[2019-09-18 20:00] VITALS: BP 132/83
--- NOTE | 2019-09-18 20:12 | NUR ---
ASSISTED THE PATIENT TO USE REST ROOM.400ML URINE VOIDED.BACK TO BED SAFELY.AAOX4.BED LOCKED AND IN LOWEST POSITION.PHONE AND CALL LIGHT WITHIN REACH.INSTRUCTED TO CALL FOR ASISTANCE NEEDED.
[2019-09-18] MEDS ORDERED: CEPACOL SORE THROAT LOZENGES PO PRN (20:30)
[2019-09-18 20:56] VITALS: BP 132/83
[2019-09-18] MEDS: DOXYCYCLINE 100MG/NS 100ML 100 ML IV SCH (23:30)
[2019-09-19] VITALS (8 sets, daily range): BP systolic 116–134; BP diastolic 71–83
[2019-09-19] MEDS: LACTATED RINGER'S 1,000 ML IV SCH ×2 (02:38→12:55)
[2019-09-19] MEDS: ONDANSETRON HCL INJ 2MG/ML 2ML 2 MG/ML VIAL IV PRN ×3 (03:59→16:28)
[2019-09-19] MEDS: PIPER-TAZ 3.375 GM 50 ML IV SCH ×4 (03:59→22:00)
--- NOTE | 2019-09-19 05:48 | NUR ---
Patient is nauseated.zofran 4mg iv given.
--- NOTE | 2019-09-19 06:27 | NUR ---
Patient refused to draw blood for lab works right now.asked associate doctor to come later .and also demanded to disconnect iv fluid temporarily.
--- NOTE | 2019-09-19 07:00 | NUR ---
received bedside report. pt is alert resting in bed, no s/s of distress. call light within reach and instructed pt to call RN for help.
--- NOTE | 2019-09-19 07:00 | NUR ---
BED SIDE SHIFT REPORT GIVEN TO ONCOMING RN.STABLE CONDITION.
[2019-09-19 08:37] LABS: BASOPHILS % 0.2 % (0.0-1.0); EOSINOPHILS % 0.1 % (0.0-6.0); HEMATOCRIT 31.6 % (34.2-44.1); HEMOGLOBIN 10.5 g/dL (12.0-16.0); LYMPHOCYTES # (AUTO) 0.9 (1.0-3.2); LYMPHOCYTES % 5.2 % (18.0-39.1); MEAN CORPUSCULAR HEMOGLOBIN 26.8 pg (28-32); MEAN CORPUSCULAR HGB CONC 33.2 g/dL (31-35); MEAN CORPUSCULAR VOLUME 80.6 fL (81-99); MONOCYTES # (AUTO) 0.9 (0.2-0.8); MONOCYTES % 5.2 % (4.4-11.3); NEUTROPHILS # (AUTO) 15.8 (2.1-6.9); PLATELET COUNT 347 x10e3/uL (140-360); RED BLOOD COUNT 3.92 x10e6/uL (3.6-5.1)
[2019-09-19 08:54] LABS: ANION GAP 8.6 mmol/L (8-16); BLOOD UREA NITROGEN 7 mg/dL (7-26); BUN/CREATININE RATIO 9 (6-25); CALCIUM 8.4 mg/dL (8.4-10.2); CARBON DIOXIDE 29 mmol/L (22-29); CHLORIDE 102 mmol/L (98-107); CREATININE, SERUM 0.81 mg/dL (0.57-1.11); EST GLOMERULAR FILTRATION RATE > 60 ML/MIN (60-); GLUCOSE 94 mg/dL (74-118); POTASSIUM 3.6 mmol/L (3.5-5.1); SODIUM 136 mmol/L (136-145)
[2019-09-19] MEDS: LACTOBACILLUS ACIDOPHILUS CAPSULE PO SCH ×2 (09:00→16:29)
[2019-09-19] MEDS: DOXYCYCLINE 100MG/NS 100ML 100 ML IV SCH ×2 (11:00→23:00)
--- NOTE | 2019-09-19 11:17 | Operative Report ---
DATE OF PROCEDURE: 09/18/2019 SURGEON: Dhara Gordillo MD PREOPERATIVE DIAGNOSES: 1. Tuboovarian abscess. 2. Multiple pelvic abscesses. POSTOPERATIVE DIAGNOSES: 1. Tuboovarian abscess. 2. Multiple pelvic abscesses. INDICATION FOR PROCEDURE: The patient is a 44-year-old patient, who presented to hospital with fevers, abdominal pain, who found to have a tuboovarian abscess. She was given IV antibiotics and consult was placed for aspiration abscess. She underwent IR aspiration. Following aspiration, she was noted to have unchanged clinical status with continues fevers despite IV antibiotics given that she was not improving despite conservative measures. The patient was counseled on the recommendation for surgical management of her abscess. She was consented for a diagnostic laparoscopy, drainage of pelvic abscess, removal of left tuboovarian abscess, possible exploratory laparotomy, possible hysterectomy, bilateral salpingo-oophorectomy, possible bowel resection. Given the patient some more details of the risks and benefits of procedure and the patient was agreed to procedure as following procedure. ESTIMATED BLOOD LOSS: 200 mL. OPERATIVE FINDINGS: It was noted to be a thick walled left tuboovarian abscess about 6 cm in size x 4 cm that was densely adhered to the side wall in the sigmoid colon. The left appendix was noted to be adhered to the structure on the left side as well. There was noted to be an abscess that was on necrotic tissue on the uterine fundus. There was also noted to be multiple abscesses along the bowel and the right pericolic gutter along with an abscess on the posterior cul-de-sac. There were dense adhesions of bowel to side wall into these lesions. There was noted to be multiple abscess wall collections were found. DESCRIPTION OF PROCEDURE: The patient was taken to the operating room, where she was placed under general anesthesia. She was placed in dorsal lithotomy position and [facility] was prepped and draped in the usual sterile fashion. A formal time-out was performed and confirmed correct patient's site and procedure. A Morgan catheter was inserted using sterile technique and drainage. Speculum was used to visualize the cervix. The uterus was used to grasp the anterior lip of the cervix. The uterus was sounded to 6 cm and Hulka manipulator was placed. A defect was removed. Attention was turned to the patient's abdomen. A 5 mm incision was made vertically in the umbilicus and Veress needle was used to enter the cavity, opening pressure was 2 mmHg and Morgan 250 mmHg. A 5-degree laparoscope was placed in atraumatic entrance of the peritoneum was confirmed. The patient was placed in Trendelenburg position. There was noted to be multiple bowel adhesions to the side wall and to the anterior abdomen, which she taken down by Dr. Esqueda, findings as above. Using the suction irrigating the bone grasper, the bowel was removed and the areas of fluid were aspirated. The necrotic tissue and abscess wall were gently removed using the blunt grasper. The appendix was peeled off using blunt grasper, sigmoid colon was noted to be densely adhered to left tuboovarian complex in the left side wall. Using LigaSure, the portion of left tuboovarian abscess was excised from the sigmoid colon using LigaSure device. The tissue was noted to be very friable. There was noted to be still another portion of the tuboovarian abscess. A large portion of this excised using LigaSure device. There was noted to be hemostasis. Attention was turned to the uterus. There was noted to be a large abscess in the posterior cul-de-sac. This was suctioned using the suction device, irrigated. Again the necrotic tissue was peeled off using blunt grasper. There was noted to be an abscess on the uterine fundus, however again aspirated that was again suctioned. After removing the necrotic tissue, there was noted to be a preparation of the uterine fundus, this was hemostatic. On the right pelvic side wall, the tube and ovary were not definitively identified as it was noted to be a dense adhesion to the side wall. Given the risk of oophorectomy, decision was made to leave this in place. Abdomen was then copiously irrigated. There was noted to be hemostasis. A QUEENIE drain was placed using the laparoscopic incision. At the end of the case, on reinspection noted to be no further abscesses and there was noted to be hemostasis. The trocars were removed. The right in place using Nylon. A 0-Vicryl was used to reapproximate the fascia. The incisions were then closed with 4-0 Monocryl. All instruments, needle, sponge, and laps counts were correct x2. The patient was taken to the recovery room in stable condition. MD GRISELDA Robertson/ERIK /[id number]
--- NOTE | 2019-09-19 11:38 | NUR ---
pt is refusing medications including IV antibiotics. the pt states that her "stomach is upset because she has not eaten in 2 days" pt education rendered, pt is still refusing.
[2019-09-19] MEDS: ACETAMINOPHEN 325 MG TAB PO PRN (20:45)
--- NOTE | 2019-09-19 22:08 | NUR ---
TEMP 100.3 .TYLENOL 650 MG PO GIVEN.REFUSE TO ADMINISTER ANTIBIOTICS.NOTIFIED TO .ASSESSMENT DONE.AMBULATES .VOIDED.QUEENIE DRAIN IN PLACE.NO PAIN VOICED.NO RESP.DISTRESS.BED LOCKED AND IN LOWEST POSITION.PHONE AND CALL LIGHT WITHIN REACH.INSTRUCTED TO CALL FOR ASSISTANCE NEEDED.DRESSING IS DRY .
[2019-09-20] VITALS: BP 124/74
--- NOTE | 2019-09-20 00:09 | Progress Note ---
DATE: SUBJECTIVE: Ms. Ac is doing better. Underwent surgical debridement of multiple pelvic abscesses. The patient is doing well. Physical examination is unremarkable from Infectious Disease point of view. The patient can be discharged home with Keflex, Flagyl, doxycycline, and azithromycin. Refer to my notes in the chart. MD DANIELA Michele/ERIK /[id number]
[2019-09-20] MEDS: LACTATED RINGER'S 1,000 ML IV SCH (02:15)
[2019-09-20] MEDS: PIPER-TAZ 3.375 GM 50 ML IV SCH ×2 (03:52→10:00)
[2019-09-20 04:00] VITALS: BP 141/76
[2019-09-20] MEDS: ONDANSETRON HCL INJ 2MG/ML 2ML 2 MG/ML VIAL IV PRN (04:08)
--- NOTE | 2019-09-20 07:00 | NUR ---
BED SIDE SHIFT REPORT GIVEN TO ONCOMING RN.STABLE CONDITION.
--- NOTE | 2019-09-20 07:00 | NUR ---
received bedside report. pt is sleeping, no s/s of distress. call light within reach
[2019-09-20 08:00] VITALS: BP 118/80
[2019-09-20] MEDS: LACTOBACILLUS ACIDOPHILUS CAPSULE PO SCH (08:56)
[2019-09-20 09:53] VITALS: BP 118/80
[2019-09-20] MEDS: DOXYCYCLINE 100MG/NS 100ML 100 ML IV SCH (11:00)
--- NOTE | 2019-09-20 11:18 | NUR ---
pt is refusing IV antibiotics, pt education rendered and physician notified.
[2019-09-20] MEDS ORDERED: AZITHROMYCIN250 MG PO (11:44)
[2019-09-20] MEDS ORDERED: DOXYCYCLINE HY100 MG PO (11:44)
[2019-09-20] MEDS ORDERED: METRONIDAZOLE500 MG PO (11:45)
[2019-09-20] MEDS ORDERED: KEFLEX500 MG PO (11:45)
[2019-09-20 12:00] VITALS: BP 144/64
--- NOTE | 2019-09-21 03:53 | Discharge Summary ---
PRIMARY CARE DOCTOR: None. FINAL DIAGNOSIS: Sepsis present on admission due to left tubo-ovarian abscess and pelvic inflammatory disease. CONSULTANTS: 1. Dhara Gordillo MD, HAND CEMENTER. 2. Jaja Torres MD, Infectious Disease. PROCEDURES/STUDIES PERFORMED: 1. CT of the abdomen and pelvis x2. 2. CT-guided aspiration. 3. Laparoscopic drainage of the abscess and also drainage of multiple intraabdominal abscesses. HISTORY: Per H and P. HOSPITAL COURSE: The patient was initially put on IV clindamycin and IV gentamicin. Her white blood cell count did go up initially. The patient underwent CT-guided drainage. This revealed pansensitive E coli. However, her white count continued to go up. Therefore, repeat CT was done, which showed multiple intraabdominal abscesses. Therefore, the patient was taken to the OR for laparoscopic drainage. Finally, after that her white blood cell count started to come down. However, the patient continued to refuse IV antibiotic after surgery due to upset stomach. Even though, I have counseled her on how important it is. At this time, the patient is demanding to go home. Per ID recommendation, the patient will go home on 4 weeks of azithromycin, doxycycline, Flagyl, and Keflex. The patient will also follow up with HAND CEMENTER in 1 week. QUEENIE drain will be pulled prior to discharge. The patient was seen and examined today. CONDITION ON DISCHARGE: Improved. DISCHARGE MEDICATIONS: Please see medication reconciliation form. YiMD KEVON Roldan/ERIK /[id number]
== END 2019-09-20 13:00 | disposition home or self-care (01) | DRG 854 ==
LOC: ER 10:48 → ERHOLD 16:29 → MED/SURG3 20:40
PROVIDERS: ADMIT Internal Medicine; ATTEND Internal Medicine
PROC: 0W9J3ZX Drainage of Pelvic Cavity, Percutaneous Approach, Diagnostic (ICD-10-PCS; principal; 2019-09-16)
PROC: 0W9F4ZX Drainage of Abdominal Wall, Percutaneous Endoscopic Approach, Diagnostic (ICD-10-PCS; 2019-09-18)
PROC: 0W9J4ZX Drainage of Pelvic Cavity, Percutaneous Endoscopic Approach, Diagnostic (ICD-10-PCS; 2019-09-18)
PROC: 0W9 Anatomical Regions, General, Drainage (ICD-10-PCS; 2019-09-18)
DX: A41.9 Sepsis, unspecified organism (principal); N70.03 Acute salpingitis and oophoritis; N73.0 Acute parametritis and pelvic cellulitis; N73.9 Female pelvic inflammatory disease, unspecified; B96.20 Unspecified Escherichia coli [E. coli] as the cause of diseases classified elsewhere; E87.6 Hypokalemia; Z83.3 Family history of diabetes mellitus; Z82.49 Family history of ischemic heart disease and other diseases of the circulatory system; Z88.0 Allergy status to penicillin; K66.0 Peritoneal adhesions (postprocedural) (postinfection)
CPT/HCPCS: 10160; 36415; 74177; 74470; 76830; 76856; 80048; 80053; 81001; 81025; 83605; 83735; 85025; 85610; 85730; 86592; 86803; 87040; 87070; 87081; 87086; 87110; 87186; 87205; 87340; 87390; 87491; 87591; 88112; 88304; 88305; 93005; 93306; 96360; 99284; G0433; G0435; J1100; J1580; J2001; J2250; J2270; J2405; J2543; J3010; J3370; J3475; J3480; J7030; J7121; Q9967